=== PATIENT | female | born 1960 | race Caucasian/White ===

== ENCOUNTER 2016-06-11 12:36 | Emergency (ER) | payer MEDICARE, OTHER ==
[2016-06-11 13:02] VITALS: BP 146/110
--- NOTE | 2016-06-11 13:14 | ERNOTE ---
Medical Problem HPI - Narrative Date of Service: 06/11/16 - General Chief Complaint: General Assessment Time Seen by Provider: 06/11/16 13:08 Source: patient Exam Limitations: no limitations - Immun/Allergies/Home Medications Immunizations: IMMUNIZATION HX History of Influenza Vaccine More Information Required Hx Pneumococcal Vaccination More Information Required Allergies/Adverse Reactions: Allergies Penicillins Allergy (Verified 06/11/16 13:14) Cephalosporins Adverse Reaction (Unknown, Verified 04/12/12 12:10) Home Medications: HOME MEDICATIONS Travoprost [Travatan Z] 1 drop EACHEYE HS 04/25/12 [Last Taken Unknown] Benztropine Mesylate 1 mg PO BID 06/12/12 [Last Taken Unknown] Cholecalciferol (Vitamin D3) [Vitamin D] 1,000 unit PO DAILY 06/12/12 [Last Taken Unknown] Docusate Sodium 100 mg PO DAILY 06/12/12 [Last Taken Unknown] Famotidine [Acid Dub Room Engineer] 20 mg PO HS 06/12/12 [Last Taken Unknown] Ferrous Sulfate [Iron] 325 mg PO DAILY 06/12/12 [Last Taken Unknown] Folic Acid 1 mg PO DAILY 06/12/12 [Last Taken Unknown] Levothyroxine Sodium [Tirosint] 75 mcg PO DAILY 06/12/12 [Last Taken Unknown] Metformin HCl 1,000 mg PO BID 06/12/12 [Last Taken Unknown] Risperidone 4 mg PO BID 06/12/12 [Last Taken Unknown] Simvastatin 80 mg PO HS 06/12/12 [Last Taken Unknown] Topiramate 25 mg PO DAILY 06/12/12 [Last Taken Unknown] Topiramate 50 mg PO HS 06/12/12 [Last Taken Unknown] Azithromycin [Zithromax] 500 mg PO NOW #6 tab 06/11/16 [Last Taken Unknown] Quetiapine Fumarate [Seroquel Xr] 700 mg PO DAILY 06/11/16 [Last Taken Unknown] - Pain Score Pain Score #1 Pain Score: 0 - History of Present History Narrative: 56yo, F, presents to ER with bloody sputum from trach site. Caregiver at [facility] is here with her today, hx of schizophrenia and is poor manager of medical. Caregiver reports she was noted to have blood mixed with mucus from trach site on 06/07/16. Symptoms have improved since initial onset, contacted her PCP and was advised to be evaluated in the ER. Pt does admit to having a productive cough. Initially stated she had been sick earlier this week, but then later said she had not been sick. Date (Duration): 06/07/16 Timing: other - improving Severity: mild Review of Systems - Review of Systems Constitutional: Absent: fever, chills, fatigue Respiratory: Present: cough. Absent: shortness of breath Cardiology: Absent: chest pain Gastrointestinal/Abdominal: Absent: nausea, vomiting Skin: Absent: rash - Patient's Past Medical History Patient History - Medical: Diabetes Type 2, Hypothyroidism, Seizures, Other - Social History Smoking Status: Never smoker Physical Exam - Physical Exam General Appearance: Present: alert, other - poor manager of medical Ears, Nose, Throat: Present: normal ENT inspection, other - post sx changes to pharynx. Absent: abnormal TM (R), abnormal TM (L), sinus pain/drainage Neck: Present: other - tracheostomy site patent, small amt of purulent sputum noted at base, no dried blood or active bleeding noted at this time, no erythema or tenderness to site Respiratory: Present: no respiratory distress, normal breath sounds, no accessory muscle use, lungs clear. Absent: crackles, rhonchi, wheezing Cardiovascular/Chest: Present: regular rate, rhythm, no murmur Skin Exam: Present: normal color, warm/dry ED Progress - Date and Time Seen: Date and Time: 06/11/16 14:10 Reviewed discharge plan and xray with pt and caregiver. Xray negative for pneumonia, but due to sputum appearance at trach site, will start Zithromax to cover for bronchitis vs early pnuemonia. No bleeding noted at site during ER stay. - Vital Signs Patient's Vital Signs:: I have reviewed the patient's vital signs. Vital Signs: Vital Signs 06/11/16 12:58 Temperature 36.7 C Pulse Rate 88 Respiratory 16 Rate Blood Pressure 146/110 O2 Sat by Pulse 100 Oximetry - X-Ray X-Ray #1 X-Ray: chest Interpretation: Reviewed by me X-ray Comments: [facility] PATIENT RADIOLOGY STUDY REPORT Patient Patient Name:MELISSA CANO Date: 1960 Sex: F Order Number: [id number] Unique Exam ID: [id number] Exam Requested: CXRPALAT - Chest PA Lateral * Date Scheduled: Study Priority: Requesting Service: Requesting Physician: Jeannie Aguila Reason for Exam: Radiological Report : Exam Date: 06/11/2016 13:26 Ordering Physician: Jeannie Aguila HISTORY: Cough. Bloody sputum. TWO VIEW CHEST Comparison: 04/10/2012 Technique: Upright frontal and lateral views of the chest were obtained. Findings: The cardiac silhouette is within normal limits of size. The mediastinum and hilum are with in normal limits. Again seen is prior calcified granulomatous disease within the hilum and left lung base. The lung dugan are clear. I do not see evidence for an infiltrate, effusion, or pulmonary edema. IMPRESSION: 1. NO ACUTE CARDIOPULMONARY PROCESS. STABLE CHEST. Electronically signed by Fazal Esparza M.D.. Approved by: Approval Date: 06-11-2016 Approval Time: 01:38 PM THIS REPORT WAS RECEIVED FROM THE [employer] SYSTEM - Progress/Reassessment Chief Complaint: General Assessment Departure - Departure Clinical Impression: Blood in sputum, Bronchitis Disposition: Other health care facility Condition: Good Instructions: Acute Bronchitis Additional Instructions: Call and schedule follow up appt with your doctor Return to ER for any difficulty breathing, worsening of symptoms or if passing blood clots or large amounts of blood from trach site Referrals: Marcin Magaña MD [Primary Care Provider] - Prescriptions: Azithromycin [Zithromax] 500 mg PO NOW #6 tab
== END 2016-06-11 14:28 | disposition short-term general hospital (02) ==
LOC: ER 12:36
DX: J40 Bronchitis, not specified as acute or chronic (principal); R04.2 Hemoptysis; Z43.0 Encounter for attention to tracheostomy